=== PATIENT | female | born 1980 | race Caucasian/White ===

== ENCOUNTER → 2021-01-27 | Outpatient (CLI) | payer OTHER | END | disposition home or self-care (01) | LOC: LABWHC1 08:17 | PROVIDERS: ATTEND Family Medicine | DX: Z20.822 Contact with and (suspected) exposure to COVID-19 (principal); R43.2 Parageusia | CPT/HCPCS: U0003; C9803; U0005 ==

== ENCOUNTER 2022-04-30 11:11 | Emergency (ER) | payer OTHER ==
[2022-04-30 11:27] VITALS: BP 131/66; PULSE 125; RESP 20; TEMP 97.8
[2022-04-30] MEDS ORDERED: DIPH,PERTUS(ACELL)TETVAC-LF 0.5 ML VIAL IM ONE (12:14)
[2022-04-30] MEDS ORDERED: ACET/COD 300 MG/30 MG STARTER PACK 6 TAB BTL PO STA (12:15)
--- NOTE | 2022-04-30 12:17 | ED ---
Animal Bite HPI - General Chief Complaint: Animal Bite Stated Complaint: attacked by cat Time Seen by Provider: 04/30/22 11:50 Source: patient, RN notes reviewed Mode of arrival: ambulatory Limitations: no limitations - History of Present Illness Initial Comments: This is a 42-year-old female who presents to the emergency department for a cat bite. Patient states that she was taking her daughter home last night, and a cat was locked inside of her apartment hallway. The cat proceeded to attack her. She has bite wounds to the inside of both thighs. States that this was a stray cat. Denies any fevers or chills, but states that it is very painful. Unsure when her last tetanus vaccine was. Denies any fevers, chills, sore throat, cough, dyspnea, chest pain, palpitations, abdominal pain, nausea, vomiting, diarrhea, back pain, or headaches. MD Complaint: animal bite Onset/Timin -: days(s) Left: Leg, Right: Leg Animal: cat Description: immunizations unknown Mechanism: bite, scratch Context: unprovoked - Related Data Patient Tetanus UTD: No Previous Rx's Medication Instructions Recorded Loratadine [Claritin] 10 mg PO DAILY #10 tab 06/17/16 predniSONE 10 mg PO DAILY #15 tab 06/17/16 raNITIdine HCL [Zantac] 150 mg PO BID #10 tab 06/17/16 Amoxic-Pot Clav 875-125Mg 1 tab PO Q12HR 10 Days #20 tab 04/30/22 [Augmentin 875-125] Ketorolac [Toradol] 10 mg PO Q6HR 3 Days #12 tab 04/30/22 Allergies Allergy/AdvReac Type Severity Reaction Status Date / Time baclofen Allergy Rash/Hives Verified 04/30/22 11:28 sulfamethoxazole Allergy Rash/Hives Verified 04/30/22 11:28 [From Bactrim] trimethoprim [From Bactrim] Allergy Rash/Hives Verified 04/30/22 11:28 Review of Systems ROS Statement: Those systems with pertinent positive or pertinent negative responses have been documented in the HPI. ROS Other: All systems not noted in ROS Statement are negative. Past Medical History Additional Past Medical History / Comment(s): backpain Past Surgical History: Hysterectomy Past Psychological History: No Psychological Hx Reported Past Alcohol Use History: None Reported Past Drug Use History: None Reported General Exam Limitations: no limitations General appearance: alert, in no apparent distress Head exam: Present: atraumatic, normocephalic, normal inspection Respiratory exam: Present: normal lung sounds bilaterally. Absent: respiratory distress, wheezes, rales, rhonchi, stridor Cardiovascular Exam: Present: regular rate, normal rhythm, normal heart sounds. Absent: systolic murmur, diastolic murmur, rubs, gallop, clicks Neurological exam: Present: alert, oriented X3, CN II-XII intact Psychiatric exam: Present: normal affect, normal mood Skin exam: Present: other (5cm x 5cm area of erythema on the bilateral medial thighs. Surrounding puncture wounds consistent with a bite. No evidence of streaking or discharge from the wounds.) Course Vital Signs 04/30/22 11:24 Temperature 97.8 F Pulse Rate 125 H Respiratory 20 Rate Blood Pressure 131/66 O2 Sat by Pulse 98 Oximetry Medical Decision Making - Medical Decision Making This is a 42-year-old female who presents to the emergency department for a cat bite. Patient's tetanus status was updated and a prescription for Augmentin was sent to the pharmacy. We discussed the rabies post exposure prophylaxis, howev er the patient states that she is not concerned, as the cat was not ill- appearing. Discussed with the patient that if she becomes ill in any way or experiences any strange symptoms, she should return immediately for the vaccination. I did provide a prescription for Toradol to help with the pain. Advised she take this with Tylenol and avoid taking it with ibuprofen or other NSAIDs. Starter pack for Tylenol #3 was provided as well to take when the pain is the most severe. Return precautions reviewed in depth, the patient is instructed to return to the emergency department with any new, worsening, or concerning symptoms. Patient verbalized understanding. This case was discussed in detail with the attending ED physician. Presentation, findings, and treatment plan discussed in detail as well. Disposition Clinical Impression: Cat bite Disposition: HOME SELF-CARE Instructions (If sedation given, give patient instructions): Animal Bite (ED) Additional Instructions: Return to the emergency department with any new, worsening, or concerning symptoms, especially in this case as you would need to proceed with the rabies vaccination. Take the antibiotic as prescribed for 10 days. Take the Toradol prescribed or ibuprofen for pain relief. You may take this with Tylenol. Keep the wounds clean and covered. Prescriptions: Amoxic-Pot Clav 875-125Mg [Augmentin 875-125] 1 tab PO Q12HR 10 Days #20 tab Ketorolac [Toradol] 10 mg PO Q6HR 3 Days #12 tab Is patient prescribed a controlled substance at d/c from ED?: No Referrals: Nonstaff,Physician [Primary Care Provider] - 1-2 days
[2022-04-30] MEDS ORDERED: RABIES IMMUNE GLOB 300 UNIT/ML 1 ML VIAL IM ONE (12:30)
[2022-04-30] MEDS ORDERED: RABIES VACCINE (PCEC) 2.5 UNIT KIT IM ONE (12:30)
[2022-04-30] MEDS ORDERED: RABIES IMMUNE GLOB 300 UNIT/ML 5 ML VIAL IM ONE (12:45)
== END 2022-04-30 12:30 | disposition home or self-care (01) ==
LOC: EC 11:11
DX: S71.151A Open bite, right thigh, initial encounter (principal); S71.152A Open bite, left thigh, initial encounter; Z23 Encounter for immunization; Z88.6 Allergy status to analgesic agent; Z88.2 Allergy status to sulfonamides; W55.01XA Bitten by cat, initial encounter
CPT/HCPCS: 90471; 90715; 99283